=== PATIENT | male | born 1995 | race Caucasian/White ===

== ENCOUNTER 2018-11-13 17:12 | Emergency (ER) | payer OTHER ==
[~2018-11-13] VITALS: Ht 182.9 cm; Wt 98.0 kg
[2018-11-13 17:16] VITALS: BP 146/75
--- NOTE | 2018-11-13 18:49 | NUR ---
Medically cleared for booking. Discharge to [employer] custody No Acute Distress
== END 2018-11-13 18:55 ==
LOC: ER 17:16
DX: F10.129 Alcohol abuse with intoxication, unspecified (principal); M54.2 Cervicalgia; V49.49XA Driver injured in collision with other motor vehicles in traffic accident, initial encounter; Y93.89 Activity, other specified; Y92.413 State road as the place of occurrence of the external cause; Y99.8 Other external cause status; Y90.9 Presence of alcohol in blood, level not specified
CPT/HCPCS: 70450; 72125; 99284; L0172